=== PATIENT | female | born 1975 | race Caucasian/White ===

== ENCOUNTER → 2016-10-21 | Outpatient (CLI) | payer OTHER ==
[2016-10-21 19:31] LABS: Basophils % (A) 0 %; CH 30.6; Eosinophils # (A) 0.2 k/uL (0-0.7); Eosinophils % (A) 3 %; HDW 2.71; HGB 15.6 gm/dL (11.4-16.0); Luc # (Auto) 0.18; Luc % (Auto) 3; Lymphocytes # (A) 1.6 k/uL (1.0-4.8); Lymphocytes % (A) 26 %; MCH 29.8 pg (25.0-35.0); MCHC 33.9 g/dL (31.0-37.0); MCV 87.8 fL (80.0-100.0); Mean Platelet Volume 8.1; Monocytes # (A) 0.4 k/uL (0-1.0); Monocytes % (A) 6 %; Neutrophils # (A) 3.8 k/uL (1.3-7.7); Neutrophils % (A) 62 %; RBC 5.24 m/uL (3.80-5.40); RDW 13.5 % (11.5-15.5); WBC 6.1 k/uL (3.8-10.6); WBC (Perox) 6.31
[2016-10-21 19:37] LABS: ALT 51 U/L (9-52); AST 27 U/L (14-36); Alkaline Phosphatase 69 U/L (38-126); Anion Gap 12 mmol/L; Blood Urea Nitrogen 14 mg/dL (7-17); Calcium 9.7 mg/dL (8.4-10.2); Carbon Dioxide 21 mmol/L (22-30); Chloride 109 mmol/L (98-107); Cholesterol 188 mg/dL (<200); Glucose 111 mg/dL (74-99); HDL Cholesterol 34 mg/dL (40-60); Non-African American GFR(MDRD) >60 (>60 ml/min/1.73 sqM); Potassium 4.1 mmol/L (3.5-5.1); Sodium 142 mmol/L (137-145); Total Bilirubin 0.6 mg/dL (0.2-1.3); Total Protein 7.6 g/dL (6.3-8.2); Triglycerides 170 mg/dL (<150)
[2016-10-21 19:40] LABS: Rheumatoid Factor, Qnt <9 IU/mL (<12)
[2016-10-21 20:28] LABS: Erythrocyte Sedimentation Rate 2 mm/hr (0-20)
[2016-10-22 15:41] LABS: ANA w/Reflex to Titer NEGATIVE (NEGATIVE)
== END | disposition home or self-care (01) ==
LOC: MMGSC 10:22
PROVIDERS: ATTEND Family Medicine
DX: I10 Essential (primary) hypertension (principal); M25.50 Pain in unspecified joint
CPT/HCPCS: 36415; 80053; 80061; 82306; 84439; 84443; 85025; 85652; 86038; 86431

== ENCOUNTER → 2017-11-26 | Outpatient (CLI) | payer BC ==
[2017-11-26 19:45] LABS: Basophils % (A) 0 %; Eosinophils # (A) 0.2 k/uL (0-0.7); Eosinophils % (A) 3 %; HCT 43.6 % (34.0-46.0); HGB 14.8 gm/dL (11.4-16.0); Lymphocytes # (A) 2.6 k/uL (1.0-4.8); Lymphocytes % (A) 40 %; MCH 29.1 pg (25.0-35.0); MCHC 33.8 g/dL (31.0-37.0); MCV 85.9 fL (80.0-100.0); Mean Platelet Volume 8.1; Monocytes # (A) 0.4 k/uL (0-1.0); Monocytes % (A) 7 %; Neutrophils % (A) 47 %; Platelet Count 232 k/uL (150-450); RBC 5.08 m/uL (3.80-5.40); RDW 12.8 % (11.5-15.5); WBC 6.3 k/uL (3.8-10.6)
[2017-11-26 19:46] LABS: ALT 48 U/L (9-52); AST 33 U/L (14-36); Albumin 4.6 g/dL (3.5-5.0); Alkaline Phosphatase 74 U/L (38-126); Anion Gap 12 mmol/L; Blood Urea Nitrogen 15 mg/dL (7-17); Carbon Dioxide 26 mmol/L (22-30); Chloride 104 mmol/L (98-107); Cholesterol 233 mg/dL (<200); Glucose 107 mg/dL (74-99); HDL Cholesterol 32 mg/dL (40-60); LDL Cholesterol,Calculated 142 mg/dL (0-99); Potassium 3.6 mmol/L (3.5-5.1); Sodium 142 mmol/L (137-145); Total Bilirubin 0.4 mg/dL (0.2-1.3); Total Protein 7.5 g/dL (6.3-8.2); Triglycerides 295 mg/dL (<150)
[2017-11-26 20:00] LABS: T4, Free (Free Thyroxine) 1.19 ng/dL (0.78-2.19)
== END | disposition home or self-care (01) ==
LOC: MMGSC 17:00
PROVIDERS: ATTEND Family Medicine
DX: Z00.00 Encounter for general adult medical examination without abnormal findings (principal); I10 Essential (primary) hypertension; E03.9 Hypothyroidism, unspecified
CPT/HCPCS: 36415; 80053; 80061; 84439; 84443; 85025

== ENCOUNTER → 2018-12-09 | Outpatient (CLI) | payer OTHER ==
[2018-12-09 14:31] LABS: HCT 44.5 % (34.0-46.0); HGB 15.4 gm/dL (11.4-16.0); MCH 30.2 pg (25.0-35.0); MCHC 34.6 g/dL (31.0-37.0); MCV 87.1 fL (80.0-100.0); Mean Platelet Volume 7.6; Platelet Count 272 k/uL (150-450); RBC 5.11 m/uL (3.80-5.40); RDW 13.7 % (11.5-15.5); WBC 7.1 k/uL (3.8-10.6)
[2018-12-09 22:19] LABS: Albumin 4.9 g/dL (3.80-4.90); Albumin/Globulin Ratio 2.58 (1.60-3.17); Calcium 9.7 mg/dL (8.7-10.3); Globulin 1.9 g/dL (1.6-3.3); Total Bilirubin 0.4 mg/dL (0.3-1.2); Total Protein 6.8 g/dL (6.2-8.2)
[2018-12-09 22:27] LABS: T4, Free (Free Thyroxine) 1.3 ng/dL (0.80-1.80)
== END ==
LOC: LABWHC1 13:40
PROVIDERS: ATTEND Internal Medicine
DX: R51 Headache (principal); R11.0 Nausea
CPT/HCPCS: 36415; 80053; 82607; 84439; 84443; 85027

== ENCOUNTER → 2019-01-19 | Outpatient (CLI) | payer OTHER ==
--- NOTE | 2019-01-19 21:13 | CT ---
EXAMINATION TYPE: CT brain wo con DATE OF EXAM: 01/19/2019 COMPARISON: None. HISTORY: Migraines CT DLP: 1118 mGycm. Automated Exposure Control for Dose Reduction was Utilized. TECHNIQUE: CT scan of the head is performed without contrast. FINDINGS: There is no acute intracranial hemorrhage, mass effect, or midline shift identified. The ventricles and sulci are within normal limits in size. Pepe-white matter differentiation is preserve d. The globes are intact and the visualized sinuses are clear. IMPRESSION: Unremarkable study.
== END | disposition home or self-care (01) ==
LOC: RADCTMAIN 16:27
PROVIDERS: ATTEND Internal Medicine
DX: R51 Headache (principal)
CPT/HCPCS: 70450

== ENCOUNTER → 2020-05-10 | Outpatient (CLI) | payer BC, OTHER | END | disposition home or self-care (01) | LOC: LABWHC1 12:40 | PROVIDERS: ATTEND Internal Medicine | DX: R50.9 Fever, unspecified (principal); R11.2 Nausea with vomiting, unspecified; M79.10 Myalgia, unspecified site | CPT/HCPCS: U0003; C9803 ==

== ENCOUNTER → 2020-06-19 | Outpatient (CLI) | payer BC, OTHER ==
--- NOTE | 2020-06-19 12:21 | MM ---
Reason for exam: clinical finding. Last mammogram was performed 13 years and 9 months ago. History: Took hormonal contraceptives for 8 years. Physical Findings: Nurse did not find any significant physical abnormalities on exam. MG 3D Diag Mammo W/Cad LAURIE Bilateral CC and MLO view(s) were taken. No prior studies available for comparison. There are scattered fibroglandular densities. Right inferior asymmetric density at a middle depth approximately 6 o'clock measures 6mm. These results were verbally communicated with the patient and result sheet given to the patient on 06/19/20. ASSESSMENT: Incomplete: need additional imaging evaluation, BI-RAD 0 RECOMMENDATION: Ultrasound of both breasts. (for pain and cloudy nipple discharge as ordered)
--- NOTE | 2020-06-19 12:23 | USB ---
Reason for exam: additional evaluation requested from abnormal screening. History: Took hormonal contraceptives for 8 years. US Breast BILAT Right complete breast ultrasound includes all four quadrants, the retroareolar region and axilla. Finding demonstrates no cystic or solid lesion seen. Left complete breast ultrasound includes all four quadrants, the retroareolar region and axilla. Finding demonstrates no cystic or solid lesion seen. No correlate for the right 6 o'clock focal asymmetric density, 6 month follow up mammogram. These results were verbally communicated with the patient and result sheet given to the patient on 06/19/20. ASSESSMENT: Probably benign, BI-RAD 3 RECOMMENDATION: Follow-up diagnostic mammogram of the right breast in 6 months. Manage on a clinical basis with regard to bilateral breast pain and benign long standing cloudy nipple discharge.
== END | disposition home or self-care (01) ==
LOC: RADMAMWWP 07:52
PROVIDERS: ATTEND Internal Medicine
DX: N64.4 Mastodynia (principal); N64.52 Nipple discharge; R92.8 Other abnormal and inconclusive findings on diagnostic imaging of breast
CPT/HCPCS: 77062; 77066

== ENCOUNTER → 2021-05-18 | Outpatient (CLI) | payer OTHER ==
--- NOTE | 2021-05-18 14:45 | MM ---
Reason for exam: additional evaluation requested from prior study. Last mammogram was performed 11 months ago. History: Patient is postmenopausal. Family history of breast cancer in paternal grandmother at age 39. Took hormonal contraceptives for 8 years. Physical Findings: Nurse did not find any significant physical abnormalities on exam. MG Diagnostic Mammo w CAD LAURIE Bilateral CC and MLO view(s) were taken. Prior study comparison: June 19, 2020, bilateral MG 3d diag mammo w/cad LAURIE. October 01, 2006, CAD bilateral diagnostic mammogram. The breast tissue is heterogeneously dense. This may lower the sensitivity of mammography. Focal asymmetry lower right MLO view persists although is smaller in size. No significant new findings when compared with previous films. These results were verbally communicated with the patient and result sheet given to the patient on 05/18/21. ASSESSMENT: Benign, BI-RAD 2 RECOMMENDATION: Routine screening mammogram of both breasts in 1 year. Manage patient on a clinical basis.
== END | disposition home or self-care (01) ==
LOC: RADMAMWWP 13:12
PROVIDERS: ATTEND Obstetrics & Gynecology
DX: N64.89 Other specified disorders of breast (principal); Z80.3 Family history of malignant neoplasm of breast
CPT/HCPCS: 77066

== ENCOUNTER 2021-06-13 17:47 | Observation (INO) | payer OTHER ==
[2021-06-13] MEDS ORDERED: SODIUM CHLORIDE 0.9% 1,000 ML IV STA (19:00)
[2021-06-13 19:57] LABS: Basophils # (A) 0.1 k/uL (0-0.2); Basophils % (A) 1 %; Eosinophils # (A) 0.2 k/uL (0-0.7); Eosinophils % (A) 3 %; HCT 44.3 % (34.0-46.0); HGB 15.7 gm/dL (11.4-16.0); Lymphocytes # (A) 1.7 k/uL (1.0-4.8); Lymphocytes % (A) 30 %; MCH 31.9 pg (25.0-35.0); MCHC 35.4 g/dL (31.0-37.0); MCV 89.9 fL (80.0-100.0); Mean Platelet Volume 8.1; Monocytes # (A) 0.3 k/uL (0-1.0); Monocytes % (A) 6 %; Neutrophils # (A) 3.5 k/uL (1.3-7.7); Neutrophils % (A) 59 %; Platelet Count 217 k/uL (150-450); RBC 4.93 m/uL (3.80-5.40); RDW 12.5 % (11.5-15.5); WBC 5.9 k/uL (3.8-10.6)
[2021-06-13 20:10] LABS: ALT 142 U/L (4-34); AST 100 U/L (14-36); African American GFR (CKD) >90 (>60 ml/min/1.73 sqM); Albumin 4.8 g/dL (3.5-5.0); Alkaline Phosphatase 95 U/L (38-126); Anion Gap 10 mmol/L; Blood Urea Nitrogen 12 mg/dL (7-17); Calcium 9.8 mg/dL (8.4-10.2); Carbon Dioxide 26 mmol/L (22-30); Chloride 100 mmol/L (98-107); Glucose 124 mg/dL (74-99); Lipase 109 U/L (23-300); Magnesium 2.1 mg/dL (1.6-2.3); Non-African American GFR(CKD) >90 (>60 ml/min/1.73 sqM); Potassium 3.8 mmol/L (3.5-5.1); Sodium 136 mmol/L (137-145); Total Bilirubin 0.5 mg/dL (0.2-1.3); Total Protein 7.6 g/dL (6.3-8.2)
[2021-06-13 20:15] LABS: Prothrombin Time 10.4 sec (9.0-12.0)
[2021-06-13 20:18] LABS: Partial Thromboplastin Time 21.6 sec (22.0-30.0)
--- NOTE | 2021-06-13 20:39 | XR ---
EXAMINATION TYPE: XR chest 2V DATE OF EXAM: 06/13/2021 COMPARISON: NONE HISTORY: 45 years Female. STUDY INDICATION GIVEN: difficulty breathing . TECHNIQUE: Frontal lateral chest radiographs IMPRESSION: Clear lungs. No pneumothorax or pleural effusion. Normal cardiomediastinal silhouette. No acute osseo us abnormality.
[2021-06-13] MEDS ORDERED: NITROGLYCERIN SL TABS 0.4 MG TAB SUBLINGUAL PRN (22:18)
[2021-06-13] MEDS ORDERED: ASPIRIN 81 MG PO STA (22:18)
--- NOTE | 2021-06-13 22:26 | ED ---
General Adult HPI - General Chief complaint: Shortness of Breath Stated complaint: Fever Time Seen by Provider: 06/13/21 18:46 Source: patient, RN notes reviewed Mode of arrival: ambulatory Limitations: no limitations - History of Present Illness Initial comments: This a 45-year-old female presents emergency Department chief complaint of chest pain, shortness of breath dizziness. Patient states symptoms have been getting worse. Patient has no prior cardiac disease. She states that she feels she is going to pass out, lightheadedness that time. Patient denies any significant vomiting diarrhea site nausea. Patient blood pressure has been elevated. Patient is concerned that she may have Covid felt that she had a fever, abdominal discomfort. - Related Data Allergies Allergy/AdvReac Type Severity Reaction Status Date / Time Milk Containing Products Allergy Nausea & Verified 06/13/21 18:37 [Dairy] Vomiting & Diarrhea Review of Systems ROS Statement: Those systems with pertinent positive or pertinent negative responses have been documented in the HPI. ROS Other: All systems not noted in ROS Statement are negative. Past Medical History Past Medical History: Hyperlipidemia, Hypertension, Thyroid Disorder History of Any Multi-Drug Resistant Organisms: MRSA Date of last positivie culture/infection: 2019 Past Surgical History: Joint Replacement Past Psychological History: No Psychological Hx Reported Smoking Status: Former smoker Past Alcohol Use History: None Reported Past Drug Use History: None Reported General Exam Limitations: no limitations General appearance: alert, in no apparent distress Head exam: Present: atraumatic, normocephalic, normal inspection Eye exam: Present: normal appearance, PERRL, EOMI. Absent: scleral icterus, conjunctival injection, periorbital swelling ENT exam: Present: normal exam, normal oropharynx, mucous membranes moist Neck exam: Present: normal inspection, full ROM. Absent: tenderness, m eningismus, lymphadenopathy Respiratory exam: Present: normal lung sounds bilaterally. Absent: respiratory distress, wheezes, rales, rhonchi, stridor Cardiovascular Exam: Present: normal rhythm, tachycardia, normal heart sounds. Absent: systolic murmur, diastolic murmur, rubs, gallop, clicks GI/Abdominal exam: Present: soft, tenderness, normal bowel sounds. Absent: distended, guarding, rebound, rigid Skin exam: Present: warm, dry, intact, normal color. Absent: rash Course Vital Signs 06/13/21 18:37 Temperature 98.6 F Pulse Rate 116 H Respiratory 16 Rate Blood Pressure 185/121 O2 Sat by Pulse 98 Oximetry Medical Decision Making - Medical Decision Making Patient does have mild transaminitis. Patient continued to have some/chest pain will be admitted for cardiac rule out d-dimer is negative COVID-19 is negative. - Lab Data Result diagrams: 06/13/21 19:23 06/13/21 19:23 Lab Results 06/13/21 06/13/21 06/13/21 Range/Units 18:47 19:23 19:23 WBC 5.9 (3.8-10.6) k/uL RBC 4.93 (3.80-5.40) m/uL Hgb 15.7 (11.4-16.0) gm/dL Hct 44.3 (34.0-46.0) % MCV 89.9 (80.0-100.0) fL MCH 31.9 (25.0-35.0) pg MCHC 35.4 (31.0-37.0) g/dL RDW 12.5 (11.5-15.5) % Plt Count 217 (150-450) k/uL MPV 8.1 Neutrophils % 59 % Lymphocytes % 30 % Monocytes % 6 % Eosinophils % 3 % Basophils % 1 % Neutrophils # 3.5 (1.3-7.7) k/uL Lymphocytes # 1.7 (1.0-4.8) k/uL Monocytes # 0.3 (0-1.0) k/uL Eosinophils # 0.2 (0-0.7) k/uL Basophils # 0.1 (0-0.2) k/uL PT 10.4 (9.0-12.0) sec INR 1.0 (<1.2) APTT 21.6 L (22.0-30.0) sec D-Dimer (<0.60) mg/L FEU Sodium (137-145) mmol/L Potassium (3.5-5.1) mmol/L Chloride (98-107) mmol/L Carbon Dioxide (22-30) mmol/L Anion Gap mmol/L BUN (7-17) mg/dL Creatinine (0.52-1.04) mg/dL Est GFR (CKD-EPI)AfAm (>60 ml/min/1.73 sqM) Est GFR (CKD-EPI)NonAf (>60 ml/min/1.73 sqM) Glucose (74-99) mg/dL Plasma Lactic Acid [place]vin (0.7-2.0) mmol/L Calcium (8.4-10.2) mg/dL Magnesium (1.6-2.3) mg/dL Total Bilirubin (0.2-1.3) mg/dL AST (14-36) U/L ALT (4-34) U/L Alkaline Phosphatase (38-126) U/L Troponin I (0.000-0.034) ng/mL NT-Pro-B Natriuret Pep pg/mL Total Protein (6.3-8.2) g/dL Albumin (3.5-5.0) g/dL Lipase (23-300) U/L Coronavirus (PCR) Not Detected (Not Detectd) 06/13/21 06/13/21 06/13/21 Range/Units 19:23 19:23 19:23 WBC (3.8-10.6) k/uL RBC (3.80-5.40) m/uL Hgb (11.4-16.0) gm/dL Hct (34.0-46.0) % MCV (80.0-100.0) fL MCH (25.0-35.0) pg MCHC (31.0-37.0) g/dL RDW (11.5-15.5) % Plt Count (150-450) k/uL MPV Neutrophils % % Lymphocytes % % Monocytes % % Eosinophils % % Basophils % % Neutrophils # (1.3-7.7) k/uL Lymphocytes # (1.0-4.8) k/uL Monocytes # (0-1.0) k/uL Eosinophils # (0-0.7) k/uL Basophils # (0-0.2) k/uL PT (9.0-12.0) sec INR (<1.2) APTT (22.0-30.0) sec D-Dimer (<0.60) mg/L FEU Sodium 136 L (137-145) mmol/L Potassium 3.8 (3.5-5.1) mmol/L Chloride 100 (98-107) mmol/L Carbon Dioxide 26 (22-30) mmol/L Anion Gap 10 mmol/L BUN 12 (7-17) mg/dL Creatinine 0.64 (0.52-1.04) mg/dL Est GFR (CKD-EPI)AfAm >90 (>60 ml/min/1.73 sqM) Est GFR (CKD-EPI)NonAf >90 (>60 ml/min/1.73 sqM) Glucose 124 H (74-99) mg/dL Plasma Lactic Acid [place]vin 1.3 (0.7-2.0) mmol/L Calcium 9.8 (8.4-10.2) mg/dL Magnesium 2.1 (1.6-2.3) mg/dL Total Bilirubin 0.5 (0.2-1.3) mg/dL AST 100 H (14-36) U/L ALT 142 H (4-34) U/L Alkaline Phosphatase 95 (38-126) U/L Troponin I <0.012 (0.000-0.034) ng/mL NT-Pro-B Natriuret Pep pg/mL Total Protein 7.6 (6.3-8.2) g/dL Albumin 4.8 (3.5-5.0) g/dL Lipase 109 (23-300) U/L Coronavirus (PCR) (Not Detectd) 06/13/21 06/13/21 06/13/21 Range/Units 19:23 19:23 21:13 WBC (3.8-10.6) k/uL RBC (3.80-5.40) m/uL Hgb (11.4-16.0) gm/dL Hct (34.0-46.0) % MCV (80.0-100.0) fL MCH (25.0-35.0) pg MCHC (31.0-37.0) g/dL RDW (11.5-15.5) % Plt Count (150-450) k/uL MPV Neutrophils % % Lymphocytes % % Monocytes % % Eosinophils % % Basophils % % Neutrophils # (1.3-7.7) k/uL Lymphocytes # (1.0-4.8) k/uL Monocytes # (0-1.0) k/uL Eosinophils # (0-0.7) k/uL Basophils # (0-0.2) k/uL PT (9.0-12.0) sec INR (<1.2) APTT (22.0-30.0) sec D-Dimer 0.33 (<0.60) mg/L FEU Sodium (137-145) mmol/L Potassium (3.5-5.1) mmol/L Chloride (98-107) mmol/L Carbon Dioxide (22-30) mmol/L Anion Gap mmol/L BUN (7-17) mg/dL Creatinine (0.52-1.04) mg/dL Est GFR (CKD-EPI)AfAm (>60 ml/min/1.73 sqM) Est GFR (CKD-EPI)NonAf (>60 ml/min/1.73 sqM) Glucose (74-99) mg/dL Plasma Lactic Acid [place] (0.7-2.0) mmol/L Calcium (8.4-10.2) mg/dL Magnesium (1.6-2.3) mg/dL Total Bilirubin (0.2-1.3) mg/dL AST (14-36) U/L ALT (4-34) U/L Alkaline Phosphatase (38-126) U/L Troponin I (0.000-0.034) ng/mL NT-Pro-B Natriuret Pep 31 pg/mL Total Protein (6.3-8.2) g/dL Albumin (3.5-5.0) g/dL Lipase (23-300) U/L Coronavirus (PCR) Not Detected (Not Detectd) Disposition Clinical Impression: Chest pain, Hypertension, Dizziness Disposition: ADMITTED IP TO THIS [facility] Condition: Fair Referrals: Mary Bañuelos MD [Primary Care Provider] - 1-2 days
[2021-06-13] MEDS ORDERED: LABETALOL 5 MG/ML VIAL MDV IVP STA (22:27)
[2021-06-13] MEDS ORDERED: PANTOPRAZOLE 40 MG/10 ML VIAL IVP STA (23:51)
[2021-06-14] MEDS ORDERED: LABETALOL 5 MG/ML VIAL MDV IVP STA ×2 (00:02→00:18)
--- NOTE | 2021-06-14 00:03 | US ---
EXAMINATION TYPE: US abdomen limited DATE OF EXAM: 06/13/2021 COMPARISON: NONE CLINICAL HISTORY: Transaminitis. EXAM MEASUREMENTS: Liver Length: 19.6 cm Gallbladder Wall: 0.2 cm CBD: 0.3 cm Right Kidney: 11.1 x 4.8 x 5.3 cm Pancreas: Obscured by bowel gas Liver: Enlarged. Echogenic. 1.4 cm hypoechoic fatty focal sparring adjacent to the gallbladder Gallbladder: wnl Evidence for sonographic Cruz's sign: No CBD: wnl Right Kidney: No hydronephrosis . Echogenic foci lower pole measuring 0.5 cm IMPRESSION: There is nonobstructing calculus lower pole right kidney. Borderline hepatomegaly. There is probably some fatty infiltration of the liver. No gallstones or dilated ducts.
[2021-06-14] MEDS ORDERED: BUTALB/APAP/CAFF 50-325-40MG TAB PO PRN (00:15)
[2021-06-14] MEDS ORDERED: LORazepam 1 MG TAB PO PRN (00:15)
[2021-06-14] MEDS ORDERED: IBUPROFEN 800 MG TAB PO PRN (00:15)
[2021-06-14] MEDS ORDERED: ONDANSETRON ODT 4 MG TAB PO PRN (00:15)
[2021-06-14] MEDS ORDERED: FORMOTEROL FUMARATE 20 MCG/2 ML NEBU INHALATION SCH (08:00)
[2021-06-14] MEDS: IPRATROPIUM 0.5 MG/2.5 ML NEBU INHALATION SCH ×2 (08:10→11:38)
[2021-06-14] MEDS ORDERED: amLODIPine 5 MG TAB PO SCH (09:00)
[2021-06-14] MEDS ORDERED: HEPARIN SODIUM,PORCINE/PF 5,000 UNIT/0.5 ML SYRINGE SQ SCH (09:00)
[2021-06-14] MEDS ORDERED: FAMOTIDINE 20 MG/2 ML VIAL IV SCH (09:00)
[2021-06-14] MEDS ORDERED: ASPIRIN 325 MG TAB PO SCH (09:00)
[2021-06-14] MEDS ORDERED: SERTRALINE 100 MG TAB PO SCH (09:00)
[2021-06-14] MEDS ORDERED: LABETALOL 100 MG TAB PO SCH (09:00)
[2021-06-14] MEDS ORDERED: DULoxetine HCL 60 MG CAPSULE.DR PO SCH (09:00)
[2021-06-14 09:09] VITALS: TEMP 98.2
[2021-06-14] MEDS ORDERED: lisinopriL 5 MG TAB PO SCH (09:15)
[2021-06-14 10:22] VITALS: RESP 16
[2021-06-14 10:24] LABS: African American GFR (CKD) >90 (>60 ml/min/1.73 sqM); Anion Gap 10 mmol/L; Blood Urea Nitrogen 12 mg/dL (7-17); Calcium 9.7 mg/dL (8.4-10.2); Carbon Dioxide 29 mmol/L (22-30); Chloride 99 mmol/L (98-107); Glucose 169 mg/dL (74-99); Non-African American GFR(CKD) >90 (>60 ml/min/1.73 sqM); Sodium 138 mmol/L (137-145)
--- NOTE | 2021-06-14 12:14 | P.CRDCN ---
History of Present Illness History of present illness: HISTORY OF PRESENTING ILLNESS This is a pleasant 45-year-old female past medical history significant for depression, hypertension, hypothyroidism and anxiety. She denies prior his tory of coronary artery disease and does not follow in the office with a suspension cord tier. We have been asked to see in consultation for chest pain. She states for the previous 9 days she has been experiencing symptoms of nausea, headache, shortness of breath, generalized weakness and chest discomfort. The chest discomfort is located in the midsternal region with intermittent radiation under the right breast. She describes it as a crampy achy sensation like somebody has punched her in the chest. Her chest pain and shortness of breath are exacerbated by activity or exertion. She denies dizziness or palpitations. She has been self isolating due to her symptoms she thought she had covid. DIAGNOSTICS EKG reveals sinus mechanism heart rate of [address] or T wave abnormalities noted. Telemetry tracings indicate SR with no arrhythmia. Chest xray negative for an acute cardiopulmonary process. Ultrasound of the abdomen reveals a nonobstructing calculus in the lower pole of the right kidney, some fatty infiltration of the liver and no gallstones or dilated ducts. Laboratory reviewed, CBC unremarkable, d-dimer 0.33, sodium 136, potassium 3.8, creatinine 0.64, magnesium 2.1, cardiac enzymes negative 3, NT proBNP 31. Current cardiac medications include labetalol 100 mg twice a day. REVIEW OF SYSTEMS At the time of my exam: CONSTITUTIONAL: Denies fever or chills. CARDIOVASCULAR: Denies chest pain, shortness of breath, orthopnea, PND or palpitations. RESPIRATORY: Denies cough. GASTROINTESTINAL: Denies abdominal pain, diarrhea, constipation, nausea or vomiting. MUSCULOSKELETAL: Denies myalgias. NEUROLOGIC: Denies numbness, tingling, headache or weakness. ENDOCRINE: Denies fatigue, weight change, polydipsia or polyurina. GENITOURINARY: Denies burning, hematuria or urgency with micturation. HEMATOLOGIC: Denies history of anemia or bleeding. PHYSICAL EXAMINATION Blood pressure 150/97 heart rate 79 afebrile and maintaining oxygen saturation on room air. CONSTITUTIONAL: No apparent distress. HEENT: Head is normocephalic. Pupils are equal, round. Sclerae anicteric. Mucous membranes of the mouth are moist. No JVD. No carotid bruit. CHEST EXAMINATION: Lungs are clear to auscultation. No chest wall tenderness is noted on palpation or with deep breathing. HEART EXAMINATION: Regular rate and rhythm. S1, S2 heard. No murmurs, gallops or rub. ABDOMEN: Soft, nontender. EXTREMITIES: 2+ peripheral pulses, no lower extremity edema and no calf tenderness. NEUROLOGIC EXAMINATION: Patient is awake, alert and oriented x3. ASSESSMENT Chest pain Transaminitis Hypertension PLAN An acute coronary event has been ruled out. Echocardiogram reviewed by Dr. Doyle, preserved LV systolic function with no evidence of wall motion abnormality. Overall pain is atypical for angina. The patient does not believe she would be to a treadmill stress test at this time. She is medically stable for discharge we will schedule her for an outpatient stress test in the office. Thank you kindly for this consultation. Nurse Practitioner note has been reviewed, I agree with a documented findings and plan of care. Patient was seen and examined. Past Medical History Past Medical History: Hyperlipidemia, Hypertension, Thyroid Disorder History of Any Multi-Drug Resistant Organisms: MRSA Date of last positivie culture/infection: 2018 Past Surgical History: Joint Replacement Past Psychological History: No Psychological Hx Reported Smoking Status: Former smoker Past Alcohol Use History: None Reported Past Drug Use History: None Reported Medications and Allergies Home Medications Medication Instructions Recorded Confirmed Type Butalb/APAP/Caff 50-325-40Mg 1 tab PO BID PRN 06/13/21 06/13/21 History [Fioricet 50-325-40] DULoxetine HCL [Cymbalta] 60 mg PO DAILY 06/13/21 06/13/21 History Diphenoxylate HCl/Atropine 1 tab PO TID PRN 06/13/21 06/13/21 History [Lomotil 2.5-0.025 mg Tablet] Gabapentin [Neurontin] 400 mg PO HS 06/13/21 06/13/21 History Ibuprofen [Motrin] 800 mg PO Q8H PRN 06/13/21 06/13/21 History LORazepam [Ativan] 0.5 - 1 mg PO DAILY PRN 06/13/21 06/13/21 History Labetalol [Trandate] 100 mg PO BID 06/13/21 06/13/21 History Levothyroxine Sodium 88 mcg PO HS 06/13/21 06/13/21 History Ondansetron Odt [Zofran Odt] 4 mg PO BID PRN 06/13/21 06/13/21 History Sertraline [Zoloft] 100 mg PO DAILY 06/13/21 06/13/21 History Tiotropium Br/Olodaterol HCl 2 puff INHALATION RT-DAILY PRN 06/13/21 06/13/21 History [Stiolto Respimat Inhal [place]] Allergies Allergy/AdvReac Type Severity Reaction Status Date / Time Milk Containing Products Allergy Nausea & Verified 06/13/21 22:44 [Dairy] Vomiting & Diarrhea Physical Exam Vitals: Vital Signs Temp Pulse Resp BP Pulse Ox 06/14/21 08:25 82 18 06/14/21 08:18 82 18 06/14/21 08:16 82 18 06/14/21 08:10 74 18 06/14/21 06:57 79 18 150/97 97 06/14/21 02:26 94 20 152/101 98 06/14/21 00:00 92 15 134/87 96 06/13/21 23:50 135/99 97 06/13/21 23:46 193/120 98 06/13/21 22:26 99 20 190/130 99 06/13/21 18:37 98.6 F 116 H 16 185/121 98 Intake and Output 06/13/21 06/14/21 06/14/21 22:59 06:59 14:59 Other: Weight 73.482 kg Results 06/13/21 19:23 06/14/21 08:22 Cardiac Enzymes 06/13/21 06/13/21 06/13/21 Range/Units 19:23 19:23 22:49 AST 100 H (14-36) U/L Troponin I <0.012 <0.012 (0.000-0.034) ng/mL 06/14/21 Range/Units 01:09 AST (14-36) U/L Troponin I <0.012 (0.000-0.034) ng/mL Coagulation 06/13/21 Range/Units 19:23 PT 10.4 (9.0-12.0) sec APTT 21.6 L (22.0-30.0) sec CBC 06/13/21 Range/Units 19:23 WBC 5.9 (3.8-10.6) k/uL RBC 4.93 (3.80-5.40) m/uL Hgb 15.7 (11.4-16.0) gm/dL Hct 44.3 (34.0-46.0) % Plt Count 217 (150-450) k/uL Comprehensive Metabolic Panel 06/13/21 Range/Units 19:23 Sodium 136 L (137-145) mmol/L Potassium 3.8 (3.5-5.1) mmol/L Chloride 100 (98-107) mmol/L Carbon Dioxide 26 (22-30) mmol/L BUN 12 (7-17) mg/dL Creatinine 0.64 (0.52-1.04) mg/dL Glucose 124 H (74-99) mg/dL Calcium 9.8 (8.4-10.2) mg/dL AST 100 H (14-36) U/L ALT 142 H (4-34) U/L Alkaline Phosphatase 95 (38-126) U/L Total Protein 7.6 (6.3-8.2) g/dL Albumin 4.8 (3.5-5.0) g/dL Current Medications Generic Name Dose Route Start Last Admin Trade Name Freq PRN Reason Stop Dose Admin Acetaminophen/Butalbital/Caffeine 1 each 06/14/21 00:15 Butalb/Apap/Caff 50-325-40mg Tab PO BID PRN Migraine Headache Amlodipine Besylate 5 mg 06/14/21 09:00 Amlodipine 5 Mg Tab PO DAILY MARY Aspirin 325 mg 06/14/21 09:00 06/14/21 07:42 Aspirin 325 Mg Tab PO 325 mg DAILY MARY Administration Duloxetine HCl 60 mg 06/14/21 09:00 06/14/21 07:42 Duloxetine Hcl 60 Mg Capsule.Dr PO 60 mg DAILY MARY Administration Famotidine 20 mg 06/14/21 09:00 Famotidine 20 Mg/2 Ml Vial IV Q12HR MARY Formoterol Fumarate 20 mcg 06/14/21 08:00 06/14/21 08:10 Formoterol Fumarate 20 Mcg/2 Ml Nebu INHALATION 20 mcg RT-BID MARY Administration Gabapentin 400 mg 06/14/21 21:00 Gabapentin 400 Mg Cap PO HS MARY Heparin Sodium (Porcine) 5,000 unit 06/14/21 09:00 Heparin Sodium,Porcine/Pf 5,000 Unit/0.5 Ml Syringe SQ Q12HR MARY Ibuprofen 800 mg 06/14/21 00:15 Ibuprofen 800 Mg Tab PO Q8H PRN Pain Ipratropium [place] 0.5 mg 06/14/21 08:00 06/14/21 08:10 Ipratropium 0.5 Mg/2.5 Ml Nebu INHALATION 0.5 mg RT-QID [facility] Administration Labetalol HCl 100 mg 06/14/21 09:00 06/14/21 07:42 Labetalol 100 Mg Tab PO 100 mg BID [facility] Administration Levothyroxine Sodium 88 mcg 06/14/21 21:00 Levothyroxine 88 Mcg Tab PO HS [facility] Lorazepam 1 mg 06/14/21 00:15 Lorazepam 1 Mg Tab PO DAILY PRN Anxiety Nitroglycerin 0.4 mg 06/13/21 22:18 Nitroglycerin Sl Tabs 0.4 Mg Tab SUBLINGUAL Q5M PRN Chest Pain Ondansetron HCl 4 mg 06/14/21 00:15 Ondansetron Odt 4 Mg Tab PO BID PRN Nausea Sertraline HCl 100 mg 06/14/21 09:00 06/14/21 07:42 Sertraline 100 Mg Tab PO 100 mg DAILY [facility] Administration Intake and Output 06/13/21 06/14/21 06/14/21 22:59 06:59 14:59 Other: Weight 73.482 kg 06/13/21 19:23 06/13/21 19:23
--- NOTE | 2021-06-14 12:19 | P.HPIM ---
History of Present Illness This is a pleasant 45 years old female with past medical history of Hyperlipidemia, Hypertension, hypothyroidism, hypertension/migraine Presents because of chest pain Patient presents with nonspecific symptoms of feeling hot, headache, but the little dizzy and diarrhea with vomiting. However also she was complaining of from the distal chest pain in the lower sternum, nonradiating about 3/10, emergency room admitted to the patient with chest pain and dizziness wanted to be evaluated by [employer] Vitals are stable. On the presentation she had uncontrolled high blood pressure 185/121. Currently blood pressure is 150/97 Labs including CBC, BMP, INR are unremarkable Liver enzymes slightly elevated with AST 100 and ALT 142, bilirubin is normal at 0.5. D-dimer -0.33 and troponin are negative 3 less than 0.012. Coronavirus not detected Liver and abdomen ultrasound: Right kidney stone, nonobstructing, no hydronephrosis. Borderline hepatomegaly no gallstones or dilated ducts Chest x-ray: No acute process EKG normal sinus rhythm with no significant ST-T changes In the emergency room patient was started on aspirin 324 mg Review of Systems CONSTITUTIONAL: No fever, no malaise, no fatigue. HEENT: No recent visual problems or hearing problems. Denied any sore throat. CARDIOVASCULAR: No orthopnea, PND, no palpitations, no syncope. PULMONARY: No shortness of breath, no cough, no hemoptysis. GASTROINTESTINAL: No diarrhea, no nausea, no vomiting, no abdominal pain. Normoactive bowel sounds. NEUROLOGICAL: No headaches, no weakness, no numbness. HEMATOLOGICAL: Denies any bleeding or petechiae. GENITOURINARY: Denies any burning micturition, frequency, or urgency. MUSCULOSKELETAL/RHEUMATOLOGICAL: Denies any joint pain, swelling, or any muscle pain. ENDOCRINE: Denies any polyuria or polydipsia. Past Medical History Past Medical History: Hyperlipidemia, Hypertension, Thyroid Disorder History of Any Multi-Drug Resistant Organisms: MRSA Date of last positivie culture/infection: 2018 Past Surgical History: Joint Replacement Past Psychological History: No Psychological Hx Reported Smoking Status: Former smoker Past Alcohol Use History: None Reported Past Drug Use History: None Reported Medications and Allergies Home Medications Medication Instructions Recorded Confirmed Type Butalb/APAP/Caff 50-325-40Mg 1 tab PO BID PRN 06/13/21 06/13/21 History [Fioricet 50-325-40] DULoxetine HCL [Cymbalta] 60 mg PO DAILY 06/13/21 06/13/21 History Diphenoxylate HCl/Atropine 1 tab PO TID PRN 06/13/21 06/13/21 History [Lomotil 2.5-0.025 mg Tablet] Gabapentin [Neurontin] 400 mg PO HS 06/13/21 06/13/21 History Ibuprofen [Motrin] 800 mg PO Q8H PRN 06/13/21 06/13/21 History LORazepam [Ativan] 0.5 - 1 mg PO DAILY PRN 06/13/21 06/13/21 History Labetalol [Trandate] 100 mg PO BID 06/13/21 06/13/21 History Levothyroxine Sodium 88 mcg PO HS 06/13/21 06/13/21 History Ondansetron Odt [Zofran Odt] 4 mg PO BID PRN 06/13/21 06/13/21 History Sertraline [Zoloft] 100 mg PO DAILY 06/13/21 06/13/21 History Tiotropium Br/Olodaterol HCl 2 puff INHALATION RT-DAILY PRN 06/13/21 06/13/21 History [Stiolto Respimat Inhal [place]] Allergies Allergy/AdvReac Type Severity Reaction Status Date / Time Milk Containing Products Allergy Nausea & Verified 06/13/21 22:44 [Dairy] Vomiting & Diarrhea Physical Exam Vitals: Vital Signs Temp Pulse Resp BP Pulse Ox 06/14/21 06:57 79 18 150/97 97 06/14/21 02:26 94 20 152/101 98 06/14/21 00:00 92 15 134/87 96 06/13/21 23:50 135/99 97 06/13/21 23:46 193/120 98 06/13/21 22:26 99 20 190/130 99 06/13/21 18:37 98.6 F 116 H 16 185/121 98 Intake and Output 06/13/21 06/14/21 06/14/21 22:59 06:59 14:59 Other: Weight 73.482 kg GENERAL: The patient is alert and oriented x3, not in any acute distress. Well developed, well nourished. HEENT: Pupils are round and equally reacting to light. EOMI. No scleral icterus. No conjunctival pallor. Normocephalic, atraumatic. No pharyngeal erythema. No thyromegaly. CARDIOVASCULAR: S1 and S2 present. No murmurs, rubs, or gallops. PULMONARY: Chest is clear to auscultation, no wheezing or crackles. ABDOMEN: Soft, nontender, nondistended, normoactive bowel sounds. No palpable organomegaly. MUSCULOSKELETAL: No joint swelling or deformity. EXTREMITIES: No cyanosis, clubbing, or pedal edema. NEUROLOGICAL: Gross neurological examination did not reveal any focal deficits. SKIN: No rashes. No petechiae Results CBC & Chem 7: 06/13/21 19:23 06/14/21 08:22 Labs: Abnormal Lab Results - Last 24 Hours (Table) 06/13/21 06/13/21 Range/Units 19:23 19:23 APTT 21.6 L (22.0-30.0) sec Sodium 136 L (137-145) mmol/L Glucose 124 H (74-99) mg/dL AST 100 H (14-36) U/L ALT 142 H (4-34) U/L Assessment and Plan Assessment: Most likely viral infection with mild acute gastroenteritis Chest pain, with negative d-dimer. rule out cardiac causes Diabetes mellitus Hypertension Hypothyroidism History of headache Obesity with BMI 31.6 Plan: this is a pleasant 45 years old female who presents because of chest pain. Continue with aspirin Cardiology consult Add Norvasc Monitor liver enzymes. Check liver ultrasound and acute hepatitis panel Labs and medication were reviewed.. Continue same treatment. Continue with s ymptomatic treatment. Resume home medication. Monitor lytes and vitals. DVT and GI prophylaxis. Further recommendations depends on the clinical course of the patient DVT prophylaxis: Subcutaneous heparin GI Prophylaxis: Pepcid
[2021-06-14 12:29] LABS: ALT 129 U/L (4-34); AST 77 U/L (14-36); Albumin 4.3 g/dL (3.5-5.0); Albumin/Globulin Ratio 1.7; Alkaline Phosphatase 97 U/L (38-126); Bilirubin,Unconjugated 0.1 mg/dL (0.0-1.1); Globulin 2.6 g/dL; Total Bilirubin 0.4 mg/dL (0.2-1.3); Total Protein 6.9 g/dL (6.3-8.2)
[2021-06-14 12:44] LABS: Chol/HDL Ratio 8.7 Ratio; HDL Cholesterol 28.4 mg/dL (40.00-60.00); LDL Cholesterol,Calculated 140.8 mg/dL (0.0-131.0); VLDL Calculation 77.8 mg/dL (5.00-40.00)
--- NOTE | 2021-06-14 12:50 | ECHOF ---
Referral Reason:chest pain, MEASUREMENTS -------- HEIGHT: 152.4 cm WEIGHT: 73.5 kg BP: RVIDd: 2.5 cm (< 3.3) IVSd: 0.9 cm (0.6 - 1.1) LVIDd: 3.8 cm (3.9 - 5.3) LVPWd: 1.1 cm (0.6 - 1.1) IVSs: 1.3 cm LVIDs: 2.4 cm LVPWs: 1.3 cm LAESV Index (A-L): 20.21 ml/m Ao Diam: 2.7 cm (2.0 - 3.7) MV EXCURSION: 12.842 mm (> 18.000) MV EF SLOPE: 81 mm/s (70 - 150) EPSS: 0.3 cm MV E Castro: 0.62 m/s MV DecT: 166 ms MV A Castro: 0.83 m/s MV E/A Ratio: 0.74 RAP: 5.00 mmHg RVSP: 9.79 mmHg FINDINGS -------- Sinus rhythm. This was a technically good study. LV size, wall thickness and systolic function are normal, with an EF greater than 55%. The left derick tricular size is normal. The right ventricle is normal in size. Normal LA size by volume 22+/-6 ml/m2. The right atrial size is normal. The aortic valve is trileaflet, and appears structurally normal. No aortic stenosis or regurgitation. Mild mitral regurgitation is present. Mild tricuspid regurgitation present. Right ventricular systolic pressure is normal at < 35 mmHg. There is no pulmonic regurgitation present. There is no pericardial effusion. CONCLUSIONS -------- 1. LV size, wall thickness and systolic function are normal, with an EF greater than 55%. 2. The left ventricular size is normal. 3. The right ventricle is normal in size. 4. Normal LA size by volume 22+/-6 ml/m2. 5. The right atrial size is normal. 6. The aortic valve is trileaflet, and appears structurally normal. No aortic stenosis or regurgitati on. 7. Mild mitral regurgitation is present. 8. Mild tricuspid regurgitation present. 9. There is no pericardial effusion. [employer] TEAM WORKER: Rosa Maldonado RDCS
[2021-06-14 13:11] VITALS: BP 128/86; PULSE 87
[2021-06-14] MEDS ORDERED: GABAPENTIN 400 MG CAP PO SCH (21:00)
[2021-06-14] MEDS ORDERED: LEVOTHYROXINE 88 MCG TAB PO SCH (21:00)
[2021-06-15 02:37] LABS: Hepatitis A Antibody IgM Nonreactive (Nonreactive); Hepatitis B Core IgM Nonreactive (Nonreactive); Hepatitis B Surface Antigen Nonreactive (Nonreactive); Hepatitis C IgG Antibody Nonreactive (Nonreactive)
== END 2021-06-14 14:04 | disposition left against medical advice (07) ==
LOC: EC 17:47 → 6NMEDSUR 06-14 00:13
PROVIDERS: ADMIT Internal Medicine; ATTEND Internal Medicine
DX: R07.89 Other chest pain (principal); K52.9 Noninfective gastroenteritis and colitis, unspecified; R74.01 Elevation of levels of liver transaminase levels; I10 Essential (primary) hypertension; E11.9 Type 2 diabetes mellitus without complications; F41.9 Anxiety disorder, unspecified; G43.909 Migraine, unspecified, not intractable, without status migrainosus; E78.5 Hyperlipidemia, unspecified; E03.9 Hypothyroidism, unspecified; N20.0 Calculus of kidney; Z53.29 Procedure and treatment not carried out because of patient's decision for other reasons; Z20.822 Contact with and (suspected) exposure to COVID-19; E66.9 Obesity, unspecified; Z68.31 Body mass index [BMI] 31.0-31.9, adult; Z91.011 Allergy to milk products; Z79.890 Hormone replacement therapy; Z79.899 Other long term (current) drug therapy; Z86.14 Personal history of Methicillin resistant Staphylococcus aureus infection; Z87.891 Personal history of nicotine dependence; Z96.60 Presence of unspecified orthopedic joint implant
CPT/HCPCS: 96376; 96374; 96375 ×2; 99285; 36415; 94640 ×2; 93005; 93306; 85379; 83880; 80061; 80053; 80048; 80076; 80074; 83605; 83690; 83735; 84484 ×2; 85025; 85610; 85730; 87635; 71046; 76705; G0378; C9113

== ENCOUNTER → 2021-10-16 | Outpatient (CLI) | payer OTHER ==
--- NOTE | 2021-10-16 13:13 | XR ---
EXAMINATION TYPE: XR chest 2V DATE OF EXAM: 10/16/2021 COMPARISON: Chest x-ray 06/13/2021 HISTORY: Hemoptysis TECHNIQUE: Frontal and lateral views of the chest are obtained. FINDINGS: There is no focal air space opacity, pleural effusion, or pneumothorax seen. The cardiac silhouette size is within normal limits. The osseous structures are intact, postop change noted to the right shoulder, there is a slight spinal curvature. IMPRESSION: No acute cardiopulmonary process.
== END | disposition home or self-care (01) ==
LOC: RADXRMAIN 12:27
PROVIDERS: ATTEND Internal Medicine
DX: R04.2 Hemoptysis (principal)
CPT/HCPCS: 71046

== ENCOUNTER → 2022-05-10 | Outpatient (CLI) | payer OTHER ==
--- NOTE | 2022-05-10 12:30 | CT ---
EXAMINATION TYPE: CT abdomen w con DATE OF EXAM: 05/10/2022 COMPARISON: Ultrasound abdomen limited June 13, 2021. HISTORY: epigastric pain and cramping CT DLP: 987 mGycm Automated exposure control for dose reduction was used. TECHNIQUE: Helical acquisition of images was performed from the lung bases through the top of iliac crest to include entire abdomen. CONTRAST: Performed with Oral Contrast and with IV Contrast, patient injected with 70 mL of Isovue 300. FINDINGS: LUNG BASES: No significant abnormality is appreciated. LIVER/GB: Liver size upper limits of normal. Liver heterogeneously hypodense consistent with diffuse fatty infiltration correlating with recent ultrasound. No biliary dilatation noted. PANCREAS: No significant abnormality is seen. SPLEEN: No significant abnormality is seen. ADRENALS: No significant abnormality is seen. KIDNEYS: Symmetric cortical medullary uptake with occasional tiny thin-walled cysts scattered through out both kidneys. There is 4 mm nonobstructing calculus in the midpole left kidney coronal image 81. BOWEL: Oral contrast reaches level of cecum. No suspicious small or large bowel dilatation. Partial visualization of normal contrast filled appendix. LYMPH NODES: No significant abnormality is seen. OSSEOUS STRUCTURES: No significant abnormality is seen. FREE AIR: No free air is visualized. OTHER: High origin of the celiac artery sagittal image 56. No significant narrowing. IMPRESSION: Fatty infiltrative hepatocellular disease redemonstrated. No suspicious new or acute find ings.
== END | disposition home or self-care (01) ==
LOC: RADCTMAIN 11:04
PROVIDERS: ATTEND Family Medicine
DX: K76.0 Fatty (change of) liver, not elsewhere classified (principal)
CPT/HCPCS: 74160; Q9967

== ENCOUNTER 2023-07-04 09:02 | Day surgery (SDC) | payer OTHER ==
[~2023-07-04 09:02] MED LIST: LACTATED RINGERS 1,000 ML IV SCH
[2023-07-04 09:47] VITALS: RESP 16; TEMP 96.2
[2023-07-04] MEDS ORDERED: PROPOFOL 10 MG/ML 20 ML VIAL IV ONE (10:24)
--- NOTE | 2023-07-04 10:40 | P.PCN ---
Date of Procedure: 07/04/23 Procedure(s) Performed: BRIEF HISTORY: Patient is a 47-year-old pleasant female scheduled for an elective colonoscopy as a part of positive cologuard/Screening for colon cancer and family history of colon cancer. Her mother was diagnosed with colon cancer in her 60s. PROCEDURE PERFORMED: Colonoscopy with snare polypectomy.. PREOPERATIVE DIAGNOSIS: Screening for colon cancer and family history of colon cancer.. IV sedation per Anesthesia. PROCEDURE: After informed consent was obtained, the patient, was brought into the endoscopy unit. IV sedation was administered by Anesthesia under continuous monitoring. Digital rectal examination was normal. Initially the Olympus CF-160 flexible video colonoscope was then inserted in the rectum, gradually advanced into the cecum without any difficulty. Careful examination was performed as the scope was gradually being withdrawn. Ileocecal valve and the appendiceal orifice were visualized and appeared normal. Prep was excellent. Mucosa of the cecum, appeared normal. Ascending colon there was a 5 mm polyp removed by snare polypectomy. Rest of the ascending colon, transverse colon, descending colon, sigmoid colon, and rectum appeared normal. In the proximal rectum was a 5 mm and 2 cm broad-based polyp that was removed by snare polypectomy. The polyp was located at Retroflexion was performed in the rectum and no lesions were seen. The patient tolerated the procedure well. IMPRESSION: 2 cm broad-based proximal rectal polyp status post polypectomy 5 mm ascending colon polyp status post polypectomy RECOMMENDATIONS: Findings of this examination were discussed with the patient as well her family. She was advised to follow up the biopsy biopsy results. If the biopsy results adenoma she can have a repeat colonoscopy in 3 years..
[2023-07-04 11:32] VITALS: BP 101/69; PULSE 96
== END 2023-07-04 11:24 | disposition home or self-care (01) ==
LOC: ORWHC2ENDO 09:02
PROVIDERS: ATTEND Internal Medicine Gastroenterology
DX: D12.2 Benign neoplasm of ascending colon (principal); D12.8 Benign neoplasm of rectum; I10 Essential (primary) hypertension; E78.5 Hyperlipidemia, unspecified; E11.9 Type 2 diabetes mellitus without complications; E03.9 Hypothyroidism, unspecified; K21.9 Gastro-esophageal reflux disease without esophagitis; Z80.0 Family history of malignant neoplasm of digestive organs; Z88.5 Allergy status to narcotic agent; Z87.891 Personal history of nicotine dependence; Z91.011 Allergy to milk products; Z79.899 Other long term (current) drug therapy
CPT/HCPCS: 88305; 45385; J2704

== ENCOUNTER → 2024-06-10 | Outpatient (CLI) | payer OTHER ==
--- NOTE | 2024-06-10 08:09 | MM ---
Reason for Exam: Clinical finding. Last mammogram was performed 3 year(s) and 1 month(s) ago. Patient History: Menarche at age 10. First Full-Term at age 16. Postmenopausal. Patient used Hormonal Contraceptives for 8 years. Currently using Estrogen and Progesterone, starting at age 48. Paternal grandmother had breast cancer, age 39. Risk Values: Jennifer 5 year model risk: 0.7%. NCI Lifetime model risk: 6.5%. Tissue Density: There are scattered areas of fibroglandular density. Findings: Analyzed By CAD. No mass or distortion. No suspicious microcalcifications. Overall Assessment: Negative, BI-RAD 1 Management: Diagnostic Breast Ultrasound of both breasts. . Results were given to the patient verbally at the time of exam. Patient should continue monthly self-breast exams. A clinical breast exam by your physician is recommended on an annual basis. This exam should not preclude additional follow-up of suspicious palpable abnormalities. Note on Jennifer scores and lifetime risk: 1. A Jennifer score greater than 3% is considered moderate risk. If this is the case, consider specialist referral to assess eligibility for a risk reducing agent. 2. If overall lifetime risk for the development of breast cancer is 20% or higher, the patient may qualify for future screening with alternating mammogram and breast MRI. [facility], , 06/10/2024 8:06 AM. Electronically signed and approved by: Guido Wolf M.D. Radiologis
--- NOTE | 2024-06-10 08:40 | USB ---
Reason for Exam: Clinical finding. Patient History: Menarche at age 10. First Full-Term at age 16. Postmenopausal. Patient used Hormonal Contraceptives for 8 years. Currently using Estrogen and Progesterone, starting at age 48. Paternal grandmother had breast cancer, age 39. Risk Values: Jennifer 5 year model risk: 0.7%. NCI Lifetime model risk: 6.5%. Technique: Method: Whole Breast Handheld. Prior Study Comparison: 10/01/2006 Bilateral Diagnostic Mammogram, [facility]. 06/19/2020 Bilateral Diagnostic Mammogram, [facility]. 05/18/2021 Bilateral Diagnostic Mammogram, [facility]. Findings: The whole breast of both breasts, the axilla of both breasts and the retroareolar of both breasts were scanned. Simple cyst noted left breast measuring 5 x 3 mm 5 cm from the nipple. No solid mass within either breast. No evidence for axillary adenopathy. Overall Assessment: Benign, BI-RAD 2 Management: Screening Mammogram of both breasts in 1 year. A clinical breast exam by your physician is recommended on an annual basis and results should be correlated with mammographic findings. This exam should not preclude additional follow-up of suspicious palpable abnormalities. Results were given to the patient verbally at the time of exam. [facility], , 06/10/2024 8:18 AM. Electronically signed and approved by: Guido Wolf M.D. Radiologis
== END | disposition home or self-care (01) ==
LOC: RADMAMWWP 07:13
PROVIDERS: ATTEND Family Medicine
DX: N64.4 Mastodynia (principal); N64.52 Nipple discharge; Z78.0 Asymptomatic menopausal state; Z80.3 Family history of malignant neoplasm of breast; R92.323 Mammographic fibroglandular density, bilateral breasts
CPT/HCPCS: 77062; 77066